=== PATIENT | female | born 1965 | race Caucasian/White ===

== ENCOUNTER 2017-06-20 14:33 | Emergency (ER) | payer MEDICAID ==
[~2017-06-20] VITALS: Ht 149.9 cm; Wt 82.0 kg
[2017-06-20 19:17] LABS: CLARITY URINE CLOUDY (CLEAR); COLOR URINE YELLOW (YELLOW); GLUCOSE URINE NEGATIVE (NEGATIVE); KETONES URINE NEGATIVE (NEGATIVE); LEUKOCYTE ESTERASE URINE 2+ (NEGATIVE); NITRITE URINE NEGATIVE (NEGATIVE); OCCULT BLOOD URINE TRACE (NEGATIVE); PH URINE 5.5 (4.5-8.0); PROTEIN URINE TRACE (NEGATIVE); SPECIFIC GRAVITY URINE 1.023 (1.005-1.030)
[2017-06-20 21:00] VITALS: BP 120/75
== END 2017-06-20 21:00 | disposition home or self-care (01) ==
LOC: ER 18:54
DX: N39.0 Urinary tract infection, site not specified (principal); E78.00 Pure hypercholesterolemia, unspecified; E05.90 Thyrotoxicosis, unspecified without thyrotoxic crisis or storm; Z90.710 Acquired absence of both cervix and uterus
CPT/HCPCS: 81001; 81025; 99283

== ENCOUNTER 2025-09-08 13:27 | Emergency (ER) | payer MEDICAID ==
[~2025-09-08] VITALS: Ht 152.4 cm; Wt 58.0 kg
[2025-09-08 13:36] VITALS: O2SAT 98
[2025-09-08 15:29] LABS: BASOPHILS % 0.6 % (0.0-2.0); EOSINOPHILS % 0.7 % (0.0-5.0); HEMATOCRIT. 37.5 % (36.0-48.0); HEMOGLOBIN. 12.6 g/dL (12.0-16.0); LYMPHOCYTES % 42.6 % (20.0-50.0); MEAN PLATELET VOLUME 6.9 fl (7.4-10.4); MONOCYTES % 5.3 % (2.0-8.0); NEUTROPHILS % 50.8 % (40.0-76.0); PLATELET 349 x1000/uL (130-400); RED BLOOD CELL COUNT 4.28 mill/uL (4.2-5.4); RED CELL DISTRIBUTION WIDTH 14.0 % (11.6-14.6)
[2025-09-08 15:43] LABS: CREATININE 0.9 mg/dL (0.6-1.0); UREA NITROGEN BLOOD 6 mg/dL (9-23)
[2025-09-08 15:44] LABS: TROPONIN I HIGH SENSITIVITY 8 ng/L (3.0-34)
[2025-09-08] MEDS: PANTOPRAZOLE 40MG DR TABLET PO ONE (16:44)
[2025-09-08] MEDS: MAGNESIUM/ALUMINUM HYDROXIDE/SIMETHICONE 30ML UDC PO ONE (16:44)
[2025-09-08] MEDS: ACETAMINOPHEN 325MG TABLET PO ONE (16:45)
[2025-09-08] MEDS ORDERED: TOPUD MT (16:54)
[2025-09-08] MEDS ORDERED: MAG355OR21 MT (16:54)
[2025-09-08] MEDS ORDERED: PANT40SU MT (16:54)
[2025-09-08 17:22] VITALS: BP 129/77; PULSE 72; RESP 16; TEMP 36.9; O2SAT 98
== END 2025-09-08 17:22 | disposition home or self-care (01) ==
LOC: ER 13:27
DX: R07.89 Other chest pain (principal); E78.00 Pure hypercholesterolemia, unspecified; M79.2 Neuralgia and neuritis, unspecified; Z79.899 Other long term (current) drug therapy; Z90.710 Acquired absence of both cervix and uterus; Z98.84 Bariatric surgery status
CPT/HCPCS: 36415; 71045; 80048; 84484; 85025; 93005; 99285